=== PATIENT | female | born 1980 | race Caucasian/White ===

== ENCOUNTER → 2018-10-22 09:24 | Outpatient (CLI) | payer SELFPAY ==
--- NOTE | 2018-10-22 10:55 | DI.RAD.S_ITS ---
PROCEDURE: XR FOOT LT MIN 3V INDICATIONS: forefoot and toe injury by rock TECHNIQUE: 3 views of the foot were acquired. COMPARISON: None. FINDINGS: Bones: Acute nondisplaced fracture involving third distal phalangeal tuft is seen. No other fracture or dislocation. No suspicious bony lesions. Soft tissues: No tibiotalar joint effusion. Achilles tendon appears normal. Soft tissue swelling around distal third toe is seen. IMPRESSION: Acute nondisplaced fracture involving third distal phalangeal tuft as above. Dictated by: Simon Aquino M.D. on 10/22/2018 at 12:25 Approved by: Simon Aquino M.D. on 10/22/2018 at 12:26
== END ==
PROVIDERS: Family Provider Family Medicine; PCP Family Medicine; Visit Provider Family Medicine
DX: S92.535A Nondisplaced fracture of distal phalanx of left lesser toe(s), initial encounter for closed fracture (principal); W22.8XXA Striking against or struck by other objects, initial encounter
CPT/HCPCS: 73630

== ENCOUNTER 2019-06-18 09:45 | Outpatient (RCR) | payer SELFPAY ==
--- NOTE | 2019-05-14 09:45 | PT.OIE ---
Current Diagnoses Sacrococcygeal disorders, not elsewhere classified (05/14/19) Sciatica, right side (05/14/19) Unspecified urinary incontinence (05/14/19) Visit Care Team Role Provider Type Dale Tomlinson MD Attending Provider Physician Primary Care Provider Referring Provider Specialty: Family Practice Address: [address] [place] [address], [id number] Email: [email or web address] Physical Therapy Initial Evaluation PT-OP-A Visit Information Start: 05/14/19 08:56 Freq: Status: Active Protocol: Document 05/14/19 09:45 [facility] (Rec: 05/14/19 12:58 [facility] [email or web address]) Out-Patient Physical Therapy Visit Information Visit Information Visit Type Initial Evaluation Visit Note 39 year old female with urinary urgency Visit Start Time 09:45 Visit Stop Time 10:30 Total Visit Minutes 45 Visit Number 1 Evaluation Information Evaluation Date 05/14/19 PT-OP-B Current Condition Start: 05/14/19 08:56 Freq: Status: Active Protocol: Document 05/14/19 09:45 [facility] (Rec: 05/14/19 10:05 [facility] [id number]) Current Condition History of Current Condition Onset Date in the last 2 year symptoms have progressed Current Complaints sudden urgency and has to get to the bathroom fast when a urge hits History of Current Condition Pt also c/o right sided SI joint/sacral pain with intermittent numbness following running in the lateral lower leg. She has started running 3-5 miles a few times per week but no leakage just urgency. Sometimes in the middle of the run she will have to void. She voids less than 10 xms per day. Drinks 4-6 glasses per day but does feel that she restricts liquids as she will need to void more. Danae reports she does not wake up at night. She has a history of a Ovarian cyst at age 11 with a great deal of scar tissue and removed appendix at the same time. History of 7 vaginal deliveries. She reports she has tried oxybutrin and this helps some. She does reports minor c/o pelvic pressure and has been told she has a prolapse but it does not bother her. Treatment Goals Patient/Caregiver Goals pt would like to reduce c/o urgency and be able to complete her run without having to stop to void. She also has c/o right sided SI pain that is worse after running that she would like to eliminate Current Functional Impairments (Reported) Functional Limitations- Recreation/ pain in SI joint and urinary Hobbies urgency limits running activities PT-OP-C Subjective Start: 05/14/19 08:56 Freq: Status: Active Protocol: Document 05/14/19 09:45 [facility] (Rec: 05/20/19 09:35 [facility] [email or web address]) OP-PT Pain Assessment Pain Assessment Grid Paper Pain Assessment Grid Completed Yes Location right SI joint Pain Location Details Right SI joint Intensity 4 Scale Used Numeric (1 - 10) Description Aching Frequency Intermittent Radiating Location right lateral lower leg after running Other Pain Aggravating Factors after running PT-OP-I Pelvic Floor Start: 05/14/19 08:56 Freq: Status: Active Protocol: Document 05/14/19 09:45 [facility] (Rec: 05/14/19 13:04 [facility] [email or web address]) Pelvic Floor Assessment Urine Pelvic Floor Surgery No Urinary Symptoms Urge Sensation Leakage Cause Urge Pelvic Clock Pelvic Clock 12-3 Atrophy Pelvic Clock 3-6 Atrophy Pelvic Clock 6-9 Atrophy Pelvic Clock 9-12 Atrophy Prolapse Uterine Prolapse Grade 2 Cystocele Grade 1 Rectocele Grade 2 SEMG (uV) Baseline 1.6 10 Second Contraction 13 Recruitment Pattern Fair Relaxation Good Holding Fair Stability of Hold Fair SEMG Stability of Rest Good Contraction Ability Voluntary Contraction Weak Voluntary Relaxation Weak Manual Muscle Testing Left 2 Manual Muscle Testing Right 2 Manual Muscle Testing Anterior 2 Manual Muscle Testing Posterior 3 Muscle Endurance (Seconds) 8 PT-OP-M Strength Start: 05/14/19 08:56 Freq: Status: Active Protocol: Document 05/14/19 09:45 [facility] (Rec: 05/14/19 13:04 [facility] [email or web address]) Trunk Strength Trunk Manual Muscle Testing Testing Position Supine Core Stabilization Able to facilitate the transverse abdominal musculature, + ASLR test PT-OP-Q Treatments Start: 05/14/19 08:56 Freq: Status: Active Protocol: Document 05/14/19 09:45 [facility] (Rec: 05/14/19 13:04 [facility] [email or web address]) Therapeutic Exercises Supine Exercises 1 Supine Exercise Name pelvic floor long holds Side bilateral Reps/Minutes 10 second holds x 10 reps ( pt to do 2 xms per day) PT-OP-T Assessment and Plan Start: 05/14/19 08:56 Freq: Status: Active Protocol: Document 05/14/19 09:45 [facility] (Rec: 05/20/19 09:34 [facility] [email or web address]) Physical Therapy Assessment Rehab Potential Rehabilitation Potential Excellent Evaluation Complexity Number of Personal Factors/Comorbidities 0 Number of Body Systems Impaired 1-2 Clinical Presentation at Evaluation Stable Impairments Impairments Activity Tolerance,Functional Activities,Pain,Strength,Tone Goals Three Impairment SI instability and right sided SI pain with intermittent radicular symptoms Short Term Goal (STG) Danae is educated in SI stabilization exercises and is able to tolerate these exercises without pain STG Duration 4 weeks [facility] Goal (LTG) With improved pelvic floor, lower abdominal, and hip stabilization Danae is able to complete a 3-5 mile run without right sided SI pain LTG Duration 8 weeks Two Impairment urinary urgency made worse with running Short Term Goal (STG) Danae is educated on bladder retraining and urge deference technique STG Duration 3-4 weeks [facility] Goal (LTG) Danae is able to complete a 3-5 mile run without having to stop to void and notes decreased c/o urgency overall with running One Impairment Pelvic floor weakness Short Term Goal (STG) Danae is educated on the anatomy of the pelvic floor and is able to improve recruitment of her anterior and lateral sawant of the levator ani STG Duration 4 weeks [facility] Goal (LTG) Improve strength of the levator ani from 2/5 MMT for anterior and lateral sawant to 4/5 MMT LTG Duration 8 weeks Assessment Summary Assessment Danae presents to physical therapy today with signs of urinary urgency, SI joint pain with running and right lateral leg radicular symptoms following a run. She reports she is unable to complete a 3-5 mile run without having to stop to void due to urgency. Danae has a history of 7 vaginal deliveries and a appendectomy which she notes has left her with a good amount of scar tissue in the abdominal wall. With pelvic floor examination today there is pelvic organ prolapses grade II uterine and rectocele, grade I cystocele. She does not complain of symptoms of her pelvic organ prolapses. She tests 2/5 MMT for anterior and lateral sawant of the levator ani and 3/5 for the posterior wall. With palpation there is scar tissue noted in the right side of the abdominal wall and some restrictions in the myofascial tissue in the suprapubic region. Danae has tenderness to palpation at the Right PSIS and demonstrates SI unlocking with standing march test. With this SI instability and running she may be irritating her nervous tissue in the lower lumbar and sacral region. Treatment will focus both on pelvic floor stability as well as abdominal and hip stabilization exercises to stabilize the SI joint. She will be educated in pelvic organ prolapse and ways to decrease pressure down on her pelvic organs. Bladder retraining and urge deference technique will be taught and Danae will be educated on stretches for the anterior abdominal wall. MFR techniques will be used over the abdominal wall and bladder . Danae is a good candidate for PT. Physical Therapy Plan Frequency and Duration Frequency of Treatment 1x/Week Duration of Treatment 8 Plan of Care Start Date 05/14/19 Plan of Care End Date 07/09/19 Therapeutic Interventions Therapeutic Interventions Home Exercise Program,Manual Therapy,Patient/Caregiver Education,Self-Care/Home Management,Therapeutic Exercises Modalities Biofeedback Next Visit Focus/Plan Next Note Type Treatment Note Next Visit Plan EMG biofeedback for pelvic floor stabilization, begin Transverse abdominal stabilization and gluteus medius stabilization, MFR over the abdominal wall and bladder
--- NOTE | 2019-05-21 10:56 | PT.OTN ---
Current Diagnoses Sacrococcygeal disorders, not elsewhere classified (05/21/19) Sciatica, right side (05/21/19) Unspecified urinary incontinence (05/21/19) Physical Therapy Treatment Note PT-OP-A Visit Information Start: 05/14/19 08:56 Freq: Status: Active Protocol: Document 05/21/19 10:32 [facility] (Rec: 05/21/19 10:33 [facility] [id number]) Out-Patient Physical Therapy Visit Information Visit Information Visit Type Treatment Note Visit Start Time 09:45 Visit Stop Time 10:30 Total Visit Minutes 45 Visit Number 2 PT-OP-B Current Condition Start: 05/14/19 08:56 Freq: Status: Active Protocol: Document 05/14/19 09:45 [facility] (Rec: 05/14/19 10:05 [facility] [id number]) Current Condition History of Current Condition Onset Date in the last 2 year symptoms have progressed Current Complaints sudden urgency and has to get to the bathroom fast when a urge hits History of Current Condition Pt also c/o right sided SI joint/sacral pain with intermittent numbness following running in the lateral lower leg. She has started running 3-5 miles a few times per week but no leakage just urgency. Sometimes in the middle of the run she will have to void. She voids less than 10 xms per day. Drinks 4-6 glasses per day but does feel that she restricts liquids as she will need to void more. Danae reports she does not wake up at night. She has a history of a Ovarian cyst at age 11 with a great deal of scar tissue and removed appendix at the same time. History of 7 vaginal deliveries. She reports she has tried oxybutrin and this helps some. She does reports minor c/o pelvic pressure and has been told she has a prolapse but it does not bother her. Treatment Goals Patient/Caregiver Goals pt would like to reduce c/o urgency and be able to complete her run without having to stop to void. She also has c/o right sided SI pain that is worse after running that she would like to eliminate Current Functional Impairments (Reported) Functional Limitations- Recreation/ pain in SI joint and urinary Hobbies urgency limits running activities PT-OP-C Subjective Start: 05/14/19 08:56 Freq: Status: Active Protocol: Document 05/21/19 10:32 [facility] (Rec: 05/21/19 10:33 [facility] [id number]) OP-PT Subjective Patient Comments Patient Comments pt reports she has been working on doing her exercises 2 times per day. She isn't sore with running but afterwards she will feel her right SI joint and lateral leg pain PT-OP-I Pelvic Floor Start: 05/14/19 08:56 Freq: Status: Active Protocol: Document 05/14/19 09:45 [facility] (Rec: 05/14/19 13:04 [facility] [email or web address]) Pelvic Floor Assessment Urine Pelvic Floor Surgery No Urinary Symptoms Urge Sensation Leakage Cause Urge Pelvic Clock Pelvic Clock 12-3 Atrophy Pelvic Clock 3-6 Atrophy Pelvic Clock 6-9 Atrophy Pelvic Clock 9-12 Atrophy Prolapse Uterine Prolapse Grade 2 Cystocele Grade 1 Rectocele Grade 2 SEMG (uV) Baseline 1.6 10 Second Contraction 13 Recruitment Pattern Fair Relaxation Good Holding Fair Stability of Hold Fair SEMG Stability of Rest Good Contraction Ability Voluntary Contraction Weak Voluntary Relaxation Weak Manual Muscle Testing Left 2 Manual Muscle Testing Right 2 Manual Muscle Testing Anterior 2 Manual Muscle Testing Posterior 3 Muscle Endurance (Seconds) 8 PT-OP-M Strength Start: 05/14/19 08:56 Freq: Status: Active Protocol: Document 05/14/19 09:45 [facility] (Rec: 05/14/19 13:04 [facility] [email or web address]) Trunk Strength Trunk Manual Muscle Testing Testing Position Supine Core Stabilization Able to facilitate the transverse abdominal musculature, + ASLR test PT-OP-Q Treatments Start: 05/14/19 08:56 Freq: Status: Active Protocol: Document 05/21/19 10:49 [facility] (Rec: 05/21/19 10:56 [facility] [id number]) Therapeutic Exercises Supine Exercises 3 Supine Exercise Name TA facilitation with marches in supine Reps/Minutes x 10 reps 2 Supine Exercise Name isometric adduction with ball squeeze Reps/Minutes x 10 reps 1 Supine Exercise Name pelvic floor long holds Side bilateral Reps/Minutes 10 second holds x 10 reps ( pt to do 2 xms per day) Other Exercises 2 Other Exercise Name quadruped TA facilitation Reps/Minutes x 10 Comments exhale with contraction 1 Other Exercise Name quadruped cat cow Reps/Minutes x 10 reps Neuro Re-Education Treatment Other Activities 1 Details Neuro muscular electrical stimulation Reps/Duration x 5 min Comments for improved pelvic floor recruitment and sensation of pelvic floor contraction PT-OP-T Assessment and Plan Start: 05/14/19 08:56 Freq: Status: Active Protocol: Document 05/21/19 10:49 [facility] (Rec: 05/21/19 10:56 [facility] [id number]) Physical Therapy Assessment Assessment Summary Assessment Good ability to perform diaphragmatic breathing. Discussed TA facilitation with gym exercises and exhaling with contraction. Started NMES today for improved recruitment of he pelvic floor Physical Therapy Plan Frequency and Duration Frequency of Treatment 1x/Week Duration of Treatment 8 Plan of Care Start Date 05/14/19 Plan of Care End Date 07/09/19 Therapeutic Interventions Therapeutic Interventions Home Exercise Program,Manual Therapy,Patient/Caregiver Education,Self-Care/Home Management,Therapeutic Exercises Modalities Biofeedback Next Visit Focus/Plan Next Visit Plan begin lateral hip stabilization exercises
--- NOTE | 2019-05-28 10:04 | PT.OTN ---
Current Diagnoses Sacrococcygeal disorders, not elsewhere classified (05/28/19) Sciatica, right side (05/28/19) Unspecified urinary incontinence (05/28/19) Physical Therapy Treatment Note PT-OP-A Visit Information Start: 05/14/19 08:56 Freq: Status: Active Protocol: Document 05/28/19 09:02 [facility] (Rec: 05/28/19 10:04 [facility] [id number]) Out-Patient Physical Therapy Visit Information Visit Information Visit Type Treatment Note Visit Start Time 09:00 Visit Stop Time 09:45 Total Visit Minutes 45 Visit Number 3 PT-OP-B Current Condition Start: 05/14/19 08:56 Freq: Status: Active Protocol: Document 05/14/19 09:45 [facility] (Rec: 05/14/19 10:05 [facility] [id number]) Current Condition History of Current Condition Onset Date in the last 2 year symptoms have progressed Current Complaints sudden urgency and has to get to the bathroom fast when a urge hits History of Current Condition Pt also c/o right sided SI joint/sacral pain with intermittent numbness following running in the lateral lower leg. She has started running 3-5 miles a few times per week but no leakage just urgency. Sometimes in the middle of the run she will have to void. She voids less than 10 xms per day. Drinks 4-6 glasses per day but does feel that she restricts liquids as she will need to void more. Danae reports she does not wake up at night. She has a history of a Ovarian cyst at age 11 with a great deal of scar tissue and removed appendix at the same time. History of 7 vaginal deliveries. She reports she has tried oxybutrin and this helps some. She does reports minor c/o pelvic pressure and has been told she has a prolapse but it does not bother her. Treatment Goals Patient/Caregiver Goals pt would like to reduce c/o urgency and be able to complete her run without having to stop to void. She also has c/o right sided SI pain that is worse after running that she would like to eliminate Current Functional Impairments (Reported) Functional Limitations- Recreation/ pain in SI joint and urinary Hobbies urgency limits running activities PT-OP-C Subjective Start: 05/14/19 08:56 Freq: Status: Active Protocol: Document 05/28/19 09:02 [facility] (Rec: 05/28/19 10:04 [facility] [id number]) OP-PT Subjective Patient Comments Patient Comments SI joint has been pretty good good she can feel it a little bit but it hasn't been bad and her leg hasn't been bugging her at all. PT-OP-I Pelvic Floor Start: 05/14/19 08:56 Freq: Status: Active Protocol: Document 05/14/19 09:45 [facility] (Rec: 05/14/19 13:04 [facility] [email or web address]) Pelvic Floor Assessment Urine Pelvic Floor Surgery No Urinary Symptoms Urge Sensation Leakage Cause Urge Pelvic Clock Pelvic Clock 12-3 Atrophy Pelvic Clock 3-6 Atrophy Pelvic Clock 6-9 Atrophy Pelvic Clock 9-12 Atrophy Prolapse Uterine Prolapse Grade 2 Cystocele Grade 1 Rectocele Grade 2 SEMG (uV) Baseline 1.6 10 Second Contraction 13 Recruitment Pattern Fair Relaxation Good Holding Fair Stability of Hold Fair SEMG Stability of Rest Good Contraction Ability Voluntary Contraction Weak Voluntary Relaxation Weak Manual Muscle Testing Left 2 Manual Muscle Testing Right 2 Manual Muscle Testing Anterior 2 Manual Muscle Testing Posterior 3 Muscle Endurance (Seconds) 8 PT-OP-M Strength Start: 05/14/19 08:56 Freq: Status: Active Protocol: Document 05/14/19 09:45 [facility] (Rec: 05/14/19 13:04 [facility] [email or web address]) Trunk Strength Trunk Manual Muscle Testing Testing Position Supine Core Stabilization Able to facilitate the transverse abdominal musculature, + ASLR test PT-OP-Q Treatments Start: 05/14/19 08:56 Freq: Status: Active Protocol: Document 05/28/19 09:02 [facility] (Rec: 05/28/19 10:04 [facility] [id number]) Therapeutic Exercises Supine Exercises 5 Supine Exercise Name quick pelvic floor contractions Reps/Minutes x 10 reps 4 Supine Exercise Name Level 1 b lower abdominal progression Reps/Minutes x 10 reps 3 Supine Exercise Name TA facilitation with marches in supine Reps/Minutes x 10 reps 2 Supine Exercise Name isometric adduction with ball squeeze Reps/Minutes x 10 reps 1 Supine Exercise Name pelvic floor long holds Side bilateral Reps/Minutes 10 second holds x 10 reps ( pt to do 2 xms per day) Sidelying Exercises 2 Sidelying Exercise Name sidelying hip circles Reps/Minutes 2 x 10 1 Sidelying Exercise Name clam shells Reps/Minutes 3 x 10 reps Standing Exercises 2 Standing Exercise Name standing single leg squats with opp leg extended Reps/Minutes x 10 reps 1 Standing Exercise Name standing squats with PElvic floor activation on the way up Reps/Minutes x 10 reps Neuro Re-Education Treatment Other Activities 1 Details Neuro muscular electrical stimulation Reps/Duration x 5 min Comments for improved pelvic floor recruitment and sensation of pelvic floor contraction Done with the pelvis elevated Self-Care/Home Management Treatment Education Patient Education Home Exercise Program Other Education urge deference technique/ bladder retraining PT-OP-T Assessment and Plan Start: 05/14/19 08:56 Freq: Status: Active Protocol: Document 05/28/19 09:02 [facility] (Rec: 05/28/19 10:04 [facility] [id number]) Physical Therapy Assessment Assessment Summary Assessment Average on EMG biofeedback today was 14.0 and max of 21. Added in quick contractions and urge deference technique/ bladder retraining. Began lateral hip stabilization and standing squats with pelvic floor activation Physical Therapy Plan Frequency and Duration Frequency of Treatment 1x/Week Duration of Treatment 8 Plan of Care Start Date 05/14/19 Plan of Care End Date 07/09/19 Next Visit Focus/Plan Next Note Type Treatment Note Next Visit Plan review standing squats and stabilization, review clam shells and lower abdominal progression, progress pelvic floor strength. Side steps with theraband
--- NOTE | 2019-06-11 13:01 | PT.OTN ---
Current Diagnoses Sacrococcygeal disorders, not elsewhere classified (06/11/19) Sciatica, right side (06/11/19) Unspecified urinary incontinence (06/11/19) Physical Therapy Treatment Note PT-OP-A Visit Information Start: 05/14/19 08:56 Freq: Status: Active Protocol: Document 06/11/19 12:58 [facility] (Rec: 06/11/19 13:01 [facility] [email or web address]) Out-Patient Physical Therapy Visit Information Visit Information Visit Type Treatment Note Visit Start Time 09:45 Visit Stop Time 10:30 Total Visit Minutes 45 Visit Number 4 PT-OP-B Current Condition Start: 05/14/19 08:56 Freq: Status: Active Protocol: Document 05/14/19 09:45 [facility] (Rec: 05/14/19 10:05 [facility] [id number]) Current Condition History of Current Condition Onset Date in the last 2 year symptoms have progressed Current Complaints sudden urgency and has to get to the bathroom fast when a urge hits History of Current Condition Pt also c/o right sided SI joint/sacral pain with intermittent numbness following running in the lateral lower leg. She has started running 3-5 miles a few times per week but no leakage just urgency. Sometimes in the middle of the run she will have to void. She voids less than 10 xms per day. Drinks 4-6 glasses per day but does feel that she restricts liquids as she will need to void more. Danae reports she does not wake up at night. She has a history of a Ovarian cyst at age 11 with a great deal of scar tissue and removed appendix at the same time. History of 7 vaginal deliveries. She reports she has tried oxybutrin and this helps some. She does reports minor c/o pelvic pressure and has been told she has a prolapse but it does not bother her. Treatment Goals Patient/Caregiver Goals pt would like to reduce c/o urgency and be able to complete her run without having to stop to void. She also has c/o right sided SI pain that is worse after running that she would like to eliminate Current Functional Impairments (Reported) Functional Limitations- Recreation/ pain in SI joint and urinary Hobbies urgency limits running activities PT-OP-C Subjective Start: 05/14/19 08:56 Freq: Status: Active Protocol: Document 06/11/19 09:49 [facility] (Rec: 06/11/19 10:37 [facility] [id number]) OP-PT Subjective Patient Comments Patient Comments flew to [place] and SI was angry and she sat in a conference for two days PT-OP-I Pelvic Floor Start: 05/14/19 08:56 Freq: Status: Active Protocol: Document 05/14/19 09:45 [facility] (Rec: 05/14/19 13:04 [facility] [email or web address]) Pelvic Floor Assessment Urine Pelvic Floor Surgery No Urinary Symptoms Urge Sensation Leakage Cause Urge Pelvic Clock Pelvic Clock 12-3 Atrophy Pelvic Clock 3-6 Atrophy Pelvic Clock 6-9 Atrophy Pelvic Clock 9-12 Atrophy Prolapse Uterine Prolapse Grade 2 Cystocele Grade 1 Rectocele Grade 2 SEMG (uV) Baseline 1.6 10 Second Contraction 13 Recruitment Pattern Fair Relaxation Good Holding Fair Stability of Hold Fair SEMG Stability of Rest Good Contraction Ability Voluntary Contraction Weak Voluntary Relaxation Weak Manual Muscle Testing Left 2 Manual Muscle Testing Right 2 Manual Muscle Testing Anterior 2 Manual Muscle Testing Posterior 3 Muscle Endurance (Seconds) 8 PT-OP-M Strength Start: 05/14/19 08:56 Freq: Status: Active Protocol: Document 05/14/19 09:45 [facility] (Rec: 05/14/19 13:04 [facility] [email or web address]) Trunk Strength Trunk Manual Muscle Testing Testing Position Supine Core Stabilization Able to facilitate the transverse abdominal musculature, + ASLR test PT-OP-Q Treatments Start: 05/14/19 08:56 Freq: Status: Active Protocol: Document 06/11/19 09:49 [facility] (Rec: 06/11/19 10:37 [facility] [id number]) Therapeutic Exercises Supine Exercises 5 Supine Exercise Name quick pelvic floor contractions Reps/Minutes x 10 reps 4 Supine Exercise Name Level 1 b lower abdominal progression Reps/Minutes x 10 reps 3 Supine Exercise Name TA facilitation with marches in supine Reps/Minutes x 10 reps 2 Supine Exercise Name isometric adduction with ball squeeze Reps/Minutes x 10 reps 1 Supine Exercise Name pelvic floor long holds Side bilateral Reps/Minutes 10 second holds x 10 reps ( pt to do 2 xms per day) Sidelying Exercises 2 Sidelying Exercise Name sidelying hip circles Reps/Minutes 2 x 10 1 Sidelying Exercise Name clam shells Reps/Minutes 3 x 10 reps Standing Exercises 4 Standing Exercise Name standing lunges 3 Standing Exercise Name side steps with theraband 2 Standing Exercise Name standing single leg squats with opp leg extended Reps/Minutes x 10 reps 1 Standing Exercise Name standing squats with PElvic floor activation on the way up Reps/Minutes x 10 reps Other Exercises 2 Other Exercise Name quadruped TA facilitation Reps/Minutes x 10 Comments exhale with contraction 1 Other Exercise Name quadruped cat cow Reps/Minutes x 10 reps PT-OP-T Assessment and Plan Start: 05/14/19 08:56 Freq: Status: Active Protocol: Document 06/11/19 12:58 [facility] (Rec: 06/11/19 13:01 [facility] [email or web address]) Physical Therapy Assessment Assessment Summary Assessment able to do higher lever dynamic stabilization exercises today with good tolerance, needs smal amount of corrections with sidelying hip circles to get the correct alignment Physical Therapy Plan Frequency and Duration Frequency of Treatment 1x/Week Duration of Treatment 8 Plan of Care Start Date 05/14/19 Plan of Care End Date 07/09/19 Therapeutic Interventions Therapeutic Interventions Home Exercise Program,Manual Therapy,Patient/Caregiver Education,Self-Care/Home Management,Therapeutic Exercises Modalities Biofeedback Next Visit Focus/Plan Next Note Type Treatment Note Next Visit Plan begin standing pelvic floor exercises next visit
--- NOTE | 2019-06-11 14:35 | PT.OTN ---
Current Diagnoses Sacrococcygeal disorders, not elsewhere classified (06/11/19) Sciatica, right side (06/11/19) Unspecified urinary incontinence (06/11/19) Physical Therapy Treatment Note PT-OP-A Visit Information Start: 05/14/19 08:56 Freq: Status: Active Protocol: Document 06/11/19 12:58 [facility] (Rec: 06/11/19 13:01 [facility] [email or web address]) Out-Patient Physical Therapy Visit Information Visit Information Visit Type Treatment Note Visit Start Time 09:45 Visit Stop Time 10:30 Total Visit Minutes 45 Visit Number 4 PT-OP-B Current Condition Start: 05/14/19 08:56 Freq: Status: Active Protocol: Document 05/14/19 09:45 [facility] (Rec: 05/14/19 10:05 [facility] [id number]) Current Condition History of Current Condition Onset Date in the last 2 year symptoms have progressed Current Complaints sudden urgency and has to get to the bathroom fast when a urge hits History of Current Condition Pt also c/o right sided SI joint/sacral pain with intermittent numbness following running in the lateral lower leg. She has started running 3-5 miles a few times per week but no leakage just urgency. Sometimes in the middle of the run she will have to void. She voids less than 10 xms per day. Drinks 4-6 glasses per day but does feel that she restricts liquids as she will need to void more. Danae reports she does not wake up at night. She has a history of a Ovarian cyst at age 11 with a great deal of scar tissue and removed appendix at the same time. History of 7 vaginal deliveries. She reports she has tried oxybutrin and this helps some. She does reports minor c/o pelvic pressure and has been told she has a prolapse but it does not bother her. Treatment Goals Patient/Caregiver Goals pt would like to reduce c/o urgency and be able to complete her run without having to stop to void. She also has c/o right sided SI pain that is worse after running that she would like to eliminate Current Functional Impairments (Reported) Functional Limitations- Recreation/ pain in SI joint and urinary Hobbies urgency limits running activities PT-OP-C Subjective Start: 05/14/19 08:56 Freq: Status: Active Protocol: Document 06/11/19 09:49 [facility] (Rec: 06/11/19 10:37 [facility] [id number]) OP-PT Subjective Patient Comments Patient Comments flew to [place] and SI was angry and she sat in a conference for two days PT-OP-I Pelvic Floor Start: 05/14/19 08:56 Freq: Status: Active Protocol: Document 05/14/19 09:45 [facility] (Rec: 05/14/19 13:04 [facility] [email or web address]) Pelvic Floor Assessment Urine Pelvic Floor Surgery No Urinary Symptoms Urge Sensation Leakage Cause Urge Pelvic Clock Pelvic Clock 12-3 Atrophy Pelvic Clock 3-6 Atrophy Pelvic Clock 6-9 Atrophy Pelvic Clock 9-12 Atrophy Prolapse Uterine Prolapse Grade 2 Cystocele Grade 1 Rectocele Grade 2 SEMG (uV) Baseline 1.6 10 Second Contraction 13 Recruitment Pattern Fair Relaxation Good Holding Fair Stability of Hold Fair SEMG Stability of Rest Good Contraction Ability Voluntary Contraction Weak Voluntary Relaxation Weak Manual Muscle Testing Left 2 Manual Muscle Testing Right 2 Manual Muscle Testing Anterior 2 Manual Muscle Testing Posterior 3 Muscle Endurance (Seconds) 8 PT-OP-M Strength Start: 05/14/19 08:56 Freq: Status: Active Protocol: Document 05/14/19 09:45 [facility] (Rec: 05/14/19 13:04 [facility] [email or web address]) Trunk Strength Trunk Manual Muscle Testing Testing Position Supine Core Stabilization Able to facilitate the transverse abdominal musculature, + ASLR test PT-OP-Q Treatments Start: 05/14/19 08:56 Freq: Status: Active Protocol: Document 06/11/19 09:49 [facility] (Rec: 06/11/19 10:37 [facility] [id number]) Therapeutic Exercises Supine Exercises 5 Supine Exercise Name quick pelvic floor contractions Reps/Minutes x 10 reps 4 Supine Exercise Name Level 1 b lower abdominal progression Reps/Minutes x 10 reps 3 Supine Exercise Name TA facilitation with marches in supine Reps/Minutes x 10 reps 2 Supine Exercise Name isometric adduction with ball squeeze Reps/Minutes x 10 reps 1 Supine Exercise Name pelvic floor long holds Side bilateral Reps/Minutes 10 second holds x 10 reps ( pt to do 2 xms per day) Sidelying Exercises 2 Sidelying Exercise Name sidelying hip circles Reps/Minutes 2 x 10 1 Sidelying Exercise Name clam shells Reps/Minutes 3 x 10 reps Standing Exercises 4 Standing Exercise Name standing lunges 3 Standing Exercise Name side steps with theraband 2 Standing Exercise Name standing single leg squats with opp leg extended Reps/Minutes x 10 reps 1 Standing Exercise Name standing squats with PElvic floor activation on the way up Reps/Minutes x 10 reps Other Exercises 2 Other Exercise Name quadruped TA facilitation Reps/Minutes x 10 Comments exhale with contraction 1 Other Exercise Name quadruped cat cow Reps/Minutes x 10 reps PT-OP-T Assessment and Plan Start: 05/14/19 08:56 Freq: Status: Active Protocol: Document 06/11/19 12:58 [facility] (Rec: 06/11/19 13:01 [facility] [email or web address]) Physical Therapy Assessment Assessment Summary Assessment able to do higher lever dynamic stabilization exercises today with good tolerance, needs smal amount of corrections with sidelying hip circles to get the correct alignment Physical Therapy Plan Frequency and Duration Frequency of Treatment 1x/Week Duration of Treatment 8 Plan of Care Start Date 05/14/19 Plan of Care End Date 07/09/19 Therapeutic Interventions Therapeutic Interventions Home Exercise Program,Manual Therapy,Patient/Caregiver Education,Self-Care/Home Management,Therapeutic Exercises Modalities Biofeedback Next Visit Focus/Plan Next Note Type Treatment Note Next Visit Plan begin standing pelvic floor exercises next visit
--- NOTE | 2019-06-18 11:07 | PT.OTN ---
Current Diagnoses Sacrococcygeal disorders, not elsewhere classified (06/18/19) Sciatica, right side (06/18/19) Unspecified urinary incontinence (06/18/19) Physical Therapy Treatment Note PT-OP-A Visit Information Start: 05/14/19 08:56 Freq: Status: Active Protocol: Document 06/11/19 12:58 [facility] (Rec: 06/11/19 13:01 [facility] [email or web address]) Out-Patient Physical Therapy Visit Information Visit Information Visit Type Treatment Note Visit Start Time 09:45 Visit Stop Time 10:30 Total Visit Minutes 45 Visit Number 4 PT-OP-B Current Condition Start: 05/14/19 08:56 Freq: Status: Active Protocol: Document 05/14/19 09:45 [facility] (Rec: 05/14/19 10:05 [facility] [id number]) Current Condition History of Current Condition Onset Date in the last 2 year symptoms have progressed Current Complaints sudden urgency and has to get to the bathroom fast when a urge hits History of Current Condition Pt also c/o right sided SI joint/sacral pain with intermittent numbness following running in the lateral lower leg. She has started running 3-5 miles a few times per week but no leakage just urgency. Sometimes in the middle of the run she will have to void. She voids less than 10 xms per day. Drinks 4-6 glasses per day but does feel that she restricts liquids as she will need to void more. Danae reports she does not wake up at night. She has a history of a Ovarian cyst at age 11 with a great deal of scar tissue and removed appendix at the same time. History of 7 vaginal deliveries. She reports she has tried oxybutrin and this helps some. She does reports minor c/o pelvic pressure and has been told she has a prolapse but it does not bother her. Treatment Goals Patient/Caregiver Goals pt would like to reduce c/o urgency and be able to complete her run without having to stop to void. She also has c/o right sided SI pain that is worse after running that she would like to eliminate Current Functional Impairments (Reported) Functional Limitations- Recreation/ pain in SI joint and urinary Hobbies urgency limits running activities PT-OP-C Subjective Start: 05/14/19 08:56 Freq: Status: Active Protocol: Document 06/18/19 09:53 [facility] (Rec: 06/18/19 11:07 [facility] [id number]) OP-PT Subjective Patient Comments Patient Comments Has felt a little more pressure lately feels like in standing she doesn't have as much control. PT-OP-I Pelvic Floor Start: 05/14/19 08:56 Freq: Status: Active Protocol: Document 05/14/19 09:45 [facility] (Rec: 05/14/19 13:04 [facility] [email or web address]) Pelvic Floor Assessment Urine Pelvic Floor Surgery No Urinary Symptoms Urge Sensation Leakage Cause Urge Pelvic Clock Pelvic Clock 12-3 Atrophy Pelvic Clock 3-6 Atrophy Pelvic Clock 6-9 Atrophy Pelvic Clock 9-12 Atrophy Prolapse Uterine Prolapse Grade 2 Cystocele Grade 1 Rectocele Grade 2 SEMG (uV) Baseline 1.6 10 Second Contraction 13 Recruitment Pattern Fair Relaxation Good Holding Fair Stability of Hold Fair SEMG Stability of Rest Good Contraction Ability Voluntary Contraction Weak Voluntary Relaxation Weak Manual Muscle Testing Left 2 Manual Muscle Testing Right 2 Manual Muscle Testing Anterior 2 Manual Muscle Testing Posterior 3 Muscle Endurance (Seconds) 8 PT-OP-M Strength Start: 05/14/19 08:56 Freq: Status: Active Protocol: Document 05/14/19 09:45 [facility] (Rec: 05/14/19 13:04 [facility] [email or web address]) Trunk Strength Trunk Manual Muscle Testing Testing Position Supine Core Stabilization Able to facilitate the transverse abdominal musculature, + ASLR test PT-OP-Q Treatments Start: 05/14/19 08:56 Freq: Status: Active Protocol: Document 06/18/19 09:53 [facility] (Rec: 06/18/19 11:07 [facility] [id number]) Therapeutic Exercises Supine Exercises 8 Supine Exercise Name templates for eccentric control and coordination of the pelvic floor Comments with EMG BIOFEEDBACK 7 Supine Exercise Name supine over the ball stretch Comments to stretch the abdominal fascia 6 Supine Exercise Name piriformis stretch Reps/Minutes hold x 1 minute each Prone Exercises 1 Prone Exercise Name cobra stretch for the bladder Comments to help with urgency while running Standing Exercises 6 Standing Exercise Name down dog stretch Comments trial of modified down dog with table 5 Standing Exercise Name standing pelvic floor isolation Reps/Minutes worked on 5 second holds and 10 second relaxation Neuro Re-Education Treatment Other Activities 1 Details Neuro muscular electrical stimulation Reps/Duration x 10 min Comments for improved pelvic floor recruitment and sensation of pelvic floor contraction Done with the pelvis elevated Self-Care/Home Management Treatment Education Other Education education on temproary bladder support for running activities and for elevating her pelvis to take pressure off the pelvic organs PT-OP-T Assessment and Plan Start: 05/14/19 08:56 Freq: Status: Active Protocol: Document 06/18/19 09:53 [facility] (Rec: 06/18/19 11:07 [facility] [id number]) Physical Therapy Assessment Assessment Summary Assessment Crystal could feel her pelvic floor standing upright more so that leaning over the table. We started templates for eccentric lowering and coordination today with EMG biofeedback. I also gave her the information for a home rental stimulation unit as she is still having difficulty feeling the full side sawant of her levator ani. I also added in cobra stretch for the anterior abdominal wall and supine over the ball to help decrease any pressure down on her bladder Physical Therapy Plan Frequency and Duration Frequency of Treatment 1x/Week Duration of Treatment 8 Plan of Care Start Date 05/14/19 Plan of Care End Date 07/09/19 Therapeutic Interventions Therapeutic Interventions Home Exercise Program,Manual Therapy,Patient/Caregiver Education,Self-Care/Home Management,Therapeutic Exercises Modalities Biofeedback Next Visit Focus/Plan Next Note Type Treatment Note Next Visit Plan continue with standing pelvic floor exercises next visit, trial of 10 second holds with 10 second relaxation
--- NOTE | 2019-12-14 14:14 | PT.OPDS ---
Current Diagnoses Sacrococcygeal disorders, not elsewhere classified (06/18/19) Sciatica, right side (06/18/19) Unspecified urinary incontinence (06/18/19) Visit Care Team Role Provider Type Dale Tomlinson MD Attending Provider Physician Primary Care Provider Referring Provider Specialty: Family Practice Address: [address] [place] [address], [id number] Email: [email or web address] Visit Number Visit Number 4 Discharge Summary PT-OP-B Current Condition Start: 05/14/19 08:56 Freq: Status: Active Protocol: Document 05/14/19 09:45 [facility] (Rec: 05/14/19 10:05 [facility] [id number]) Current Condition History of Current Condition Onset Date in the last 2 year symptoms have progressed Current Complaints sudden urgency and has to get to the bathroom fast when a urge hits History of Current Condition Pt also c/o right sided SI joint/sacral pain with intermittent numbness following running in the lateral lower leg. She has started running 3-5 miles a few times per week but no leakage just urgency. Sometimes in the middle of the run she will have to void. She voids less than 10 xms per day. Drinks 4-6 glasses per day but does feel that she restricts liquids as she will need to void more. Danae reports she does not wake up at night. She has a history of a Ovarian cyst at age 11 with a great deal of scar tissue and removed appendix at the same time. History of 7 vaginal deliveries. She reports she has tried oxybutrin and this helps some. She does reports minor c/o pelvic pressure and has been told she has a prolapse but it does not bother her. Treatment Goals Patient/Caregiver Goals pt would like to reduce c/o urgency and be able to complete her run without having to stop to void. She also has c/o right sided SI pain that is worse after running that she would like to eliminate Current Functional Impairments (Reported) Functional Limitations- Recreation/ pain in SI joint and urinary Hobbies urgency limits running activities PT-OP-C Subjective Start: 05/14/19 08:56 Freq: Status: Active Protocol: Document 06/18/19 09:53 [facility] (Rec: 06/18/19 11:07 [facility] [id number]) OP-PT Subjective Patient Comments Patient Comments Has felt a little more pressure lately feels like in standing she doesn't have as much control. PT-OP-I Pelvic Floor Start: 05/14/19 08:56 Freq: Status: Active Protocol: Document 05/14/19 09:45 [facility] (Rec: 05/14/19 13:04 [facility] [email or web address]) Pelvic Floor Assessment Urine Pelvic Floor Surgery No Urinary Symptoms Urge Sensation Leakage Cause Urge Pelvic Clock Pelvic Clock 12-3 Atrophy Pelvic Clock 3-6 Atrophy Pelvic Clock 6-9 Atrophy Pelvic Clock 9-12 Atrophy Prolapse Uterine Prolapse Grade 2 Cystocele Grade 1 Rectocele Grade 2 SEMG (uV) Baseline 1.6 10 Second Contraction 13 Recruitment Pattern Fair Relaxation Good Holding Fair Stability of Hold Fair SEMG Stability of Rest Good Contraction Ability Voluntary Contraction Weak Voluntary Relaxation Weak Manual Muscle Testing Left 2 Manual Muscle Testing Right 2 Manual Muscle Testing Anterior 2 Manual Muscle Testing Posterior 3 Muscle Endurance (Seconds) 8 PT-OP-M Strength Start: 05/14/19 08:56 Freq: Status: Active Protocol: Document 05/14/19 09:45 [facility] (Rec: 05/14/19 13:04 [facility] [email or web address]) Trunk Strength Trunk Manual Muscle Testing Testing Position Supine Core Stabilization Able to facilitate the transverse abdominal musculature, + ASLR test PT-OP-T Assessment and Plan Start: 05/14/19 08:56 Freq: Status: Active Protocol: Document 12/14/19 14:13 [facility] (Rec: 12/14/19 14:14 [facility] [email or web address]) Physical Therapy Assessment Assessment Summary Assessment Pt has not been seen since the Covid 19 pandemic. She did not wish to continue PT at this time Physical Therapy Plan Discharge Physical Therapy Discharge Reasons No Longer Attending PT Discharge Comments Covid 19 pandmemic
== END 2019-12-15 10:52 ==
LOC: PHYS 09:45
PROVIDERS: PCP Family Medicine; Referring Provider Family Medicine; Visit Provider Family Medicine
DX: R32 Unspecified urinary incontinence (principal); M54.31 Sciatica, right side; M53.3 Sacrococcygeal disorders, not elsewhere classified
CPT/HCPCS: 97110; 97112; 97161

== ENCOUNTER → 2020-02-05 18:46 | Outpatient (CLI) | payer SELFPAY ==
--- NOTE | 2020-02-05 18:56 | DI.RAD.S_ITS ---
PROCEDURE: XR ELBOW LT MIN 3V INDICATIONS: painful elbow injury TECHNIQUE: 3 views of the elbow were acquired. COMPARISON: None. FINDINGS: Bones: No fractures or dislocations. No suspicious bony lesions. Soft tissues: No elbow joint effusion. No suspicious soft tissue calcifications. IMPRESSION: Normal elbow plain films. Dictated by: Neil Linares M.D. on 02/06/2020 at 9:31 Approved by: Neil Linares M.D. on 02/06/2020 at 9:31
== END ==
PROVIDERS: PCP Family Medicine; Referring Provider Family Medicine; Visit Provider Family Medicine
DX: S59.902A Unspecified injury of left elbow, initial encounter (principal); M25.522 Pain in left elbow; X58.XXXA Exposure to other specified factors, initial encounter
CPT/HCPCS: 73080

== ENCOUNTER → 2024-06-27 | Outpatient (CLI) | payer SELFPAY ==
--- NOTE | 2024-06-27 13:05 | DI.MG.S_ITS ---
MM screening mammo BI: 06/27/2024. BI-RADS: 1 CLINICAL: 44-year old female for bilateral screening mammogram. Tyrer-Cuzick lifetime risk of 7.0%. No personal or first-degree family history of breast cancer. PRIOR EXAMS: None. This is a baseline mammogram. MAMMOGRAPHY TECHNIQUE: 2D and 3D (tomosynthesis) digital mammographic views obtained, with additional images as needed for full coverage. Current study was also evaluated with a Computer Aided Detection (CAD) system. DENSITY B. There are scattered areas of fibroglandular density. MAMMOGRAPHY FINDINGS Bilateral: No suspicious mass, asymmetry, microcalcification, or other abnormality seen. IMPRESSION: * No evidence of malignancy. RECOMMENDATIONS Bilateral * Annual screening mammography. OVERALL ASSESSMENT CATEGORY BI-RADS-1: Negative. The [employer] recommends annual screening mammography beginning at age 40 for women with average risk of breast cancer. ELECTRONICALLY SIGNED: Juanis Slater M.D. on 06/29/2024 at 03:55:45 PM PT Interpreting Station ID: [id number]
== END ==
LOC: MAMMO 13:04
PROVIDERS: PCP Family Medicine; Referring Provider Nurse Practitioner; Visit Provider Nurse Practitioner
DX: Z12.31 Encounter for screening mammogram for malignant neoplasm of breast (principal)
CPT/HCPCS: 77063; 77067